=== PATIENT | female | born 1955 | race Caucasian/White ===

== ENCOUNTER 2020-10-15 11:19 | Emergency (ER) | payer MEDICARE, OTHER ==
--- NOTE | 2020-10-15 12:39 | ERPHSYRPT ---
- History of Present Illness Time Seen by Provider: 10/15/20 12:38 Patient Subjective Stated Complaint: left knee replacement 2 days ago. Have painful knot in back of knee since yesterday. Afebrile. has no complaints at this time. Patient concerned about possible blood clot. Triage Nursing Assessment: AAox3, left knee replaced 2 days ago. C/o severe pain in left popliteal space. States has painful knot in popliteal space. Patient states concerned about possible blood clot. Home Medications: Gabapentin 300 mg [Neurontin 300 mg] 300 mg PO BID 10/15/20 [History] Hydrocodone Bit/Acetaminophen [Hydrocodon-Acetaminophn 10-325] 1 each PO Q4- 6HPRN PRN 10/15/20 [History] Omeprazole 40 mg PO DAILY 10/15/20 [History] Hx Tetanus, Diphtheria Vaccination/Date Given: No Hx Influenza Vaccination/Date Given: No Hx Pneumococcal Vaccination/Date Given: No Travel Risk - International Travel Have you traveled outside of the country in past 3 weeks: No - Coronavirus Screening Are you exhibiting any of the following symptoms?: No Close contact with a COVID-19 positive Pt in past 14-21 Days: No - Vaccine Status Have you recieved a Covid-19 vaccination: Yes [employer]: Moderna - Vaccination Dates Date of 2cond Vaccination (if applicable): May 2020 - Past Medical History Neurological History: Peripheral Neuropathy Cardiac History: No Pertinent History Respiratory History: No Pertinent History Endocrine Medical History: No Pertinent History Musculoskeletal History: Arthritis - Past Surgical History Other Surgical History: left knee replacement 10/13/20,. right rotator cuff repair - Social History Smoking Status: Never smoker Drug Use: none Patient Lives Alone: Yes - Female History Hx Now: No - Nursing Vital Signs Nursing Vital Signs: Initial Vital Signs Temperature 98.8 F 10/15/20 11:38 Pulse Rate 96 H 10/15/20 11:38 Respiratory Rate 16 10/15/20 11:38 Blood Pressure 128/67 10/15/20 11:38 O2 Sat by Pulse Oximetry 96 10/15/20 11:38 Pain Scale Pain Intensity 10 - Physical Exam SpO2: 96 - Departure Referrals: GAVI ZARAGOZA [Primary Care Provider] -
[2020-10-15 13:03] VITALS: BP 128/72; PULSE 90
[2020-10-21 16:38] VITALS: O2SAT 96
== END 2020-10-15 12:50 | disposition left against medical advice (07) ==
LOC: ED 11:19
DX: M25.562 Pain in left knee (principal); Z96.652 Presence of left artificial knee joint; Z79.899 Other long term (current) drug therapy
CPT/HCPCS: 99283